=== PATIENT | female | born 1970 | race Caucasian/White ===

== ENCOUNTER 2019-07-30 16:52 | Emergency (ER) | payer MEDICARE, MEDICAID ==
[2019-07-30] MEDS ORDERED: Meclizine HCl 25 MG TAB ONE (17:41)
== END 2019-07-30 17:52 | disposition home or self-care (01) ==
LOC: BURERS 16:52
DX: H81.10 Benign paroxysmal vertigo, unspecified ear (principal); F31.9 Bipolar disorder, unspecified; I10 Essential (primary) hypertension; E78.5 Hyperlipidemia, unspecified; E78.00 Pure hypercholesterolemia, unspecified; J44.9 Chronic obstructive pulmonary disease, unspecified; F20.9 Schizophrenia, unspecified; Z79.899 Other long term (current) drug therapy
CPT/HCPCS: J8597